=== PATIENT | male | born 1965 | race Hispanic/Latino ===

== ENCOUNTER 2018-03-01 06:00 | Day surgery (SDC) | payer BC ==
[~2018-03-01] VITALS: Ht 170.2 cm; Wt 82.6 kg
[~2018-03-01 06:00] MED LIST: AMOXICILLIN500 MG PO; ASPIRIN EC81 MG PO; GLIPIZIDE ER5 M1 PO; LISINOPRIL10 MG PO; METFORMIN1000 MG PO; METFORMIN500 MG PO; NEXIUM40 MG PO; OMEPRAZOLE20 M2 PO; PRAVASTATIN20 MG PO; PRILOSEC40 MG PO; TAM75CAP PO
[2018-03-01 08:41] VITALS: BP 104/65
== END 2018-03-01 08:10 | disposition home or self-care (01) | DRG 379 ==
LOC: ENDO 06:00 → ORM 08:20
PROVIDERS: ATTEND Surgery
PROC: 0DBH8ZX Excision of Cecum, Via Natural or Artificial Opening Endoscopic, Diagnostic (ICD-10-PCS; principal; 2018-03-01)
PROC: 0DB48ZX Excision of Esophagogastric Junction, Via Natural or Artificial Opening Endoscopic, Diagnostic (ICD-10-PCS; 2018-03-01)
PROC: 0DB78ZX Excision of Stomach, Pylorus, Via Natural or Artificial Opening Endoscopic, Diagnostic (ICD-10-PCS; 2018-03-01)
DX: K29.51 Unspecified chronic gastritis with bleeding (principal); R19.7 Diarrhea, unspecified; K59.00 Constipation, unspecified; K64.4 Residual hemorrhoidal skin tags; K63.5 Polyp of colon; K21.9 Gastro-esophageal reflux disease without esophagitis; I10 Essential (primary) hypertension; E11.9 Type 2 diabetes mellitus without complications

== ENCOUNTER 2023-09-29 09:06 | Observation (INO) | payer OTHER ==
[~2023-09-29] VITALS: Ht 170.2 cm; Wt 90.0 kg
[2023-09-29] VITALS (11 sets, daily range): BP systolic 128–172; BP diastolic 75–86
[2023-09-29] MEDS ORDERED: ONDANSETRON 4 MG/TAB ODT PO ONE (09:20)
[2023-09-29 09:51] LABS: URINE BILIRUBIN - DIPSTICK Negative (NEGATIVE); URINE BLOOD DIPSTICK Trace-lysed (NEGATIVE); URINE COLOR Yellow; URINE GLUCOSE - DIPSTICK 500 mg/dL (NEGATIVE); URINE KETONE Negative (NEGATIVE); URINE LEUK ESTERASE Negative (NEGATIVE); URINE NITRITE - DIPSTICK Negative (Negative); URINE PROTEIN - DIPSTICK Negative (NEG-TRACE); URINE SPECIFIC GRAVITY 1.015; URINE UROBILINOGEN - DIPSTICK 0.2 E.U./dL (0.2)
[2023-09-29 09:56] LABS: BASO% 0.5 % (0-3); HEMATOCRIT 39.4 % (39.0-50.0); HEMOGLOBIN 12.4 g/dl (14.0-18.0); IMMATURE GRANULOCYTES 0.1 % (0.0-5.0); LYMPH% 22.5 % (15-41); MEAN CORPUSCULAR HGB 24.8 pG CALC (26.0-32.0); MEAN CORPUSCULAR HGB CONC 31.5 g/dL CAL (32.0-36.0); MONO% 7.8 % (2-13); NEUT# 7.12 thou/uL (1.82-7.42); NEUT% 68.1 % (42-76); RED BLOOD COUNT 4.99 mill/uL (4.70-6.10); RED CELL DISTRI WIDTH 14.6 % (11.5-15.5)
[2023-09-29 10:19] LABS: ALBUMIN 4.8 g/dL (3.2-5.0); ALKALINE PHOSPHATASE 95 u/l (38-126); ANION GAP 14 (6-22 (CALC)); BUN 8 mg/dL (9-20); BUN/CREATININE RATIO 9 (12-20 (CALC)); CARBON DIOXIDE 24 mmol/l (22-30); CHLORIDE 100 mmol/l (95-108); CREATININE 0.8 mg/dL (0.7-1.3); GFR FOR AFR.AMER. > 60 ML/MIN (>=60 (CALC)); GFR OTHER RACES > 60 ML/MIN (>=60 (CALC)); POTASSIUM 3.9 mmol/l (3.5-5.1); SGOT/AST 72 u/l (17-59); SODIUM 134 mmol/l (137-146)
[2023-09-29 10:21] LABS: BILIRUBIN, TOTAL 0.7 mg/dL (0.2-1.3)
[2023-09-29] MEDS ORDERED: LIDOCAINE VISCOUS 2% 15 ML UDC PO ONE (10:50)
[2023-09-29] MEDS ORDERED: ALUM & MAG HYDROX-SIMETHICONE 30 ML PO ONE (10:50)
[2023-09-29 10:52] LABS: LIPASE 189 u/l (23-300)
[2023-09-29] MEDS ORDERED: SODIUM CHLORIDE 0.9% 1,000 ML IV ONE (11:15)
[2023-09-29] MEDS ORDERED: KETOROLAC TROMETHAMINE 30 MG/ML SDV IV ONE (13:10)
[2023-09-29] MEDS ORDERED: MAGNESIUM HYDROXIDE 30 ML UDC PO PRN (13:45)
[2023-09-29] MEDS ORDERED: ACETAMINOPHEN 325 MG/TAB PO PRN (13:45)
[2023-09-29] MEDS ORDERED: LACTATED RINGER'S 1,000 ML IV PRN (13:50)
[2023-09-29] MEDS ORDERED: MORPHINE SULFATE 4 MG/ML VIAL IV PRN (13:50)
[2023-09-29] MEDS ORDERED: ONDANSETRON HCl 4 MG/2 ML SDV IV PRN (13:50)
[2023-09-29] MEDS ORDERED: LEVOCETIRIZINE D5 MG PO (15:23)
[2023-09-29] MEDS ORDERED: OMEGA 31000 MG PO (15:24)
[2023-09-29] MEDS ORDERED: ENOXAPARIN SODIUM 40 MG/0.4 ML SYR SC SCH (21:00)
[2023-09-30] VITALS (12 sets, daily range): BP systolic 125–150; BP diastolic 71–86
[2023-09-30 05:14] LABS: BASO% 0.6 % (0-3); EOS% 2.2 % (0-8); HEMATOCRIT 40.6 % (39.0-50.0); HEMOGLOBIN 12.6 g/dl (14.0-18.0); IMMATURE GRANULOCYTES 0.5 % (0.0-5.0); LYMPH% 24.9 % (15-41); MEAN CELL VOLUME 79.1 fL CALC (80.0-100.0); MEAN CORPUSCULAR HGB 24.6 pG CALC (26.0-32.0); MONO% 11.3 % (2-13); NEUT% 60.5 % (42-76); RED BLOOD COUNT 5.13 mill/uL (4.70-6.10); RED CELL DISTRI WIDTH 14.9 % (11.5-15.5)
[2023-09-30 05:35] LABS: ALBUMIN 4.5 g/dL (3.2-5.0); ALKALINE PHOSPHATASE 70 u/l (38-126); ANION GAP 11 (6-22 (CALC)); BUN 8 mg/dL (9-20); BUN/CREATININE RATIO 8 (12-20 (CALC)); CARBON DIOXIDE 26 mmol/l (22-30); CHLORIDE 103 mmol/l (95-108); GFR FOR AFR.AMER. > 60 ML/MIN (>=60 (CALC)); GFR OTHER RACES > 60 ML/MIN (>=60 (CALC)); MAGNESIUM 1.7 mg/dL (1.6-2.3); POTASSIUM 4.6 mmol/l (3.5-5.1); SGOT/AST 53 u/l (17-59); SODIUM 135 mmol/l (137-146); TOTAL PROTEIN 7.5 g/dL (6.3-8.2)
[2023-09-30 05:38] LABS: BILIRUBIN, TOTAL 1.4 mg/dL (0.2-1.3)
[2023-09-30] MEDS ORDERED: SUCCINYLCHOLINE CHLORIDE 20 MG/ML 10ML VIAL IV ONE (09:11)
[2023-09-30] MEDS ORDERED: ROCURONIUM BROMIDE 10 MG/ML 5ML VIAL IV ONE (09:11)
[2023-09-30] MEDS ORDERED: PHENYLEPHRINE HCL 10 MG/ML VIAL IV ONE (09:11)
[2023-09-30] MEDS ORDERED: PROPOFOL 200 MG/20 ML VIAL IV ONE (09:11)
[2023-09-30] MEDS ORDERED: LIDOCAINE HCL 2% 2ML SDV IV ONE (09:11)
[2023-09-30] MEDS ORDERED: KETOROLAC TROMETHAMINE 30 MG/ML SDV IV ONE (09:11)
[2023-09-30] MEDS ORDERED: SUGAMMADEX SODIUM 200 MG/2 ML SDV IV ONE (09:11)
[2023-09-30] MEDS ORDERED: FAMOTIDINE 10MG/ML 2ML SDV IV ONE (10:53)
[2023-09-30] MEDS ORDERED: ceFAZolin Sodium 2 GM/VIAL SDV ONE (10:53)
[2023-09-30] MEDS ORDERED: SODIUM CHLORIDE 0.9% 100 ML IV ONE (10:53)
[2023-09-30] MEDS ORDERED: LIDOcaine HCl 1% (Local Anesth.) 20 ML VIAL ONE (11:20)
[2023-09-30] MEDS ORDERED: [UNRECOGNIZED DRUG - OTHER] IV ONE (11:40)
[2023-09-30] MEDS ORDERED: GADOBUTROL IV ONE (11:40)
[2023-09-30] MEDS ORDERED: HYDROmorphone HCL 2 MG/AMP IV PRN (12:45)
[2023-09-30] MEDS ORDERED: oxyCODONE 5MG/ ACETAMINOPHEN 325MG TAB PO PRN (12:45)
[2023-09-30] MEDS ORDERED: SIMETHICONE 20 MG/0.3 ML PO PRN (12:45)
[2023-09-30] MEDS ORDERED: SODIUM CHLORIDE 20 ML/VIAL SDV ONE (12:46)
[2023-09-30] MEDS ORDERED: SODIUM CHLORIDE 1,000 ML BTL IR ONE (12:59)
[2023-09-30] MEDS ORDERED: STERILE WATER FOR IRRIGATION 1,000 ML BTL IR ONE (12:59)
[2023-09-30] MEDS ORDERED: ACETAMINOPHEN 100 ML IV ONE (13:06)
[2023-09-30] MEDS ORDERED: ONDANSETRON HCl 4 MG/2 ML SDV ONE (13:53)
[2023-09-30] MEDS ORDERED: LACTATED RINGER'S 1,000 ML IV ONE (14:03)
[2023-09-30] MEDS ORDERED: LISINOPRIL 10 MG/TAB PO SCH (15:00)
[2023-09-30] MEDS ORDERED: glipiZIDE 2.5 MG EXTENDED RELEASE TAB PO SCH (15:00)
[2023-09-30] MEDS ORDERED: KETOROLAC TROMETHAMINE 15 MG/ML SDV IV SCH (18:00)
[2023-09-30] MEDS ORDERED: PANTOPRAZOLE SODIUM Sesquihydr 40 MG/TAB PO SCH (21:00)
[2023-10-01] VITALS (7 sets, daily range): BP systolic 112–144; BP diastolic 67–78
[2023-10-01 06:24] LABS: BASO% 0.5 % (0-3); EOS% 1.1 % (0-8); HEMATOCRIT 37.6 % (39.0-50.0); HEMOGLOBIN 11.6 g/dl (14.0-18.0); IMMATURE GRANULOCYTES 0.2 % (0.0-5.0); MEAN CELL VOLUME 80.3 fL CALC (80.0-100.0); MEAN CORPUSCULAR HGB 24.8 pG CALC (26.0-32.0); MEAN CORPUSCULAR HGB CONC 30.9 g/dL CAL (32.0-36.0); MONO% 9.8 % (2-13); NEUT# 8.42 thou/uL (1.82-7.42); NEUT% 73.4 % (42-76); RED BLOOD COUNT 4.68 mill/uL (4.70-6.10)
[2023-10-01 06:46] LABS: ALBUMIN 3.9 g/dL (3.2-5.0); ALKALINE PHOSPHATASE 65 u/l (38-126); ANION GAP 10 (6-22 (CALC)); BILIRUBIN, TOTAL 1.1 mg/dL (0.2-1.3); BUN 11 mg/dL (9-20); BUN/CREATININE RATIO 10 (12-20 (CALC)); CARBON DIOXIDE 26 mmol/l (22-30); CHLORIDE 102 mmol/l (95-108); GFR FOR AFR.AMER. > 60 ML/MIN (>=60 (CALC)); GFR OTHER RACES > 60 ML/MIN (>=60 (CALC)); POTASSIUM 4.4 mmol/l (3.5-5.1); SODIUM 134 mmol/l (137-146); TOTAL PROTEIN 6.6 g/dL (6.3-8.2)
[2023-10-01 06:48] LABS: SGOT/AST 305 u/l (17-59)
[2023-10-01] MEDS ORDERED: MAGNESIUM HYDROXIDE 30 ML UDC PO SCH (11:30)
[2023-10-01] MEDS ORDERED: DOCUSATE CALCIUM 240 MG/CAP PO SCH (11:30)
[2023-10-01] MEDS ORDERED: PERCOCET 5/325M1 TAB PO (12:07)
[2023-10-01] MEDS ORDERED: LACTULOSE 20 GM/30 ML UDC PO SCH (14:30)
[2023-10-02] VITALS: BP 123/65
[2023-10-02 00:15] VITALS: BP 123/65
[2023-10-02 04:37] VITALS: BP 120/69
[2023-10-02 05:33] VITALS: BP 120/69
[2023-10-02 06:44] VITALS: BP 132/80
[2023-10-02 08:39] VITALS: BP 132/80
== END 2023-10-02 09:52 | disposition home or self-care (01) | DRG 419 ==
LOC: ED 09:06 → ED-I 13:00 → ED 13:21 → MS2 13:22
PROVIDERS: Family Medicine; Surgery; ADMIT Student in an Organized Health Care Education/Training Program; ATTEND Student in an Organized Health Care Education/Training Program
PROC: 0FT44ZZ Resection of Gallbladder, Percutaneous Endoscopic Approach (ICD-10-PCS; principal; 2023-09-30)
PROC: BF001ZZ Plain Radiography of Bile Ducts using Low Osmolar Contrast (ICD-10-PCS; 2023-09-30)
DX: K80.13 Calculus of gallbladder with acute and chronic cholecystitis with obstruction (principal); I10 Essential (primary) hypertension; E11.9 Type 2 diabetes mellitus without complications; E78.00 Pure hypercholesterolemia, unspecified; Z79.84 Long term (current) use of oral hypoglycemic drugs; Z86.010 Personal history of colon polyps
CPT/HCPCS: A9585; G0378; J0131; J0690; J1650